=== PATIENT | female | born 1965 | race Caucasian/White ===

== ENCOUNTER → 2016-11-13 | Outpatient (CLI) | payer OTHER ==
--- NOTE | 2016-11-13 11:44 | MM ---
Reason for exam: additional evaluation requested from abnormal screening. Last mammogram was performed less than 1 month ago. History: Family history of breast cancer in aunt at age 50 and breast cancer in grandmother at age 80. Took hormonal contraceptives for 10 years. Physical Findings: Nurse did not find any significant physical abnormalities on exam. MG 3D Work Up W/Cad RT LM and spot compression CC view(s) were taken of the right breast. Prior study comparison: November 07, 2016, bilateral MG screening mammo w CAD. November 06, 2015, bilateral MG screening mammo w CAD. October 26, 2014, bilateral MG screening mammo w CAD. The breast tissue is heterogeneously dense. This may lower the sensitivity of mammography. The questioned central posterior asymmetry on the CC view does not show any persisting abnormality on tomosynthesis. A precautionary 6 month follow up is recommended. These results were verbally communicated with the patient and result sheet given to the patient on 11/13/16. ASSESSMENT: Probably benign, BI-RAD 3 RECOMMENDATION: Follow-up diagnostic mammogram of the right breast in 6 months.
== END | disposition home or self-care (01) ==
LOC: RADMAMWWP 10:08
PROVIDERS: ATTEND Obstetrics & Gynecology
DX: R92.8 Other abnormal and inconclusive findings on diagnostic imaging of breast (principal)
CPT/HCPCS: 77051; G0206; G0279

== ENCOUNTER → 2017-05-21 | Outpatient (CLI) | payer OTHER ==
--- NOTE | 2017-05-22 06:39 | MM ---
Reason for exam: follow-up at short interval from prior study. Last mammogram was performed 6 months ago. History: Family history of breast cancer in aunt at age 50 and breast cancer in grandmother at age 80. Took hormonal contraceptives for 10 years beginning at age 18. Physical Findings: Nurse did not find any significant physical abnormalities on exam. MG 3D Diag Mammo W/Cad RT CC and MLO view(s) were taken of the right breast. Prior study comparison: November 13, 2016, right breast MG 3d work up w/cad RT. November 07, 2016, bilateral MG screening mammo w CAD. The breast tissue is heterogeneously dense. This may lower the sensitivity of mammography. Asymmetric breast tissue in the right upper outer quadrant, stable. There is no discrete abnormality. These results were verbally communicated with the patient and result sheet given to the patient on 05/21/17. ASSESSMENT: Negative, BI-RAD 1 RECOMMENDATION: Return to routine screening mammogram schedule for both breasts. Back on schedule.
== END | disposition home or self-care (01) ==
LOC: RADMAMWWP 14:53
PROVIDERS: ATTEND Obstetrics & Gynecology
DX: R92.8 Other abnormal and inconclusive findings on diagnostic imaging of breast (principal)
CPT/HCPCS: G0206; G0279

== ENCOUNTER → 2018-10-27 | Outpatient (CLI) | payer OTHER ==
[2018-10-27 08:16] VITALS: BP 122/76; PULSE 65; TEMP 97.8; BMI 21.1
--- NOTE | 2018-10-27 08:55 | P.HPOB ---
History of Present Illness H&P Date: 10/27/18 Chief Complaint: The patient is here for her routine gynecologic exam and mammogram. This is a 53-year-old G2 PII with an LMP of May 2017. The patient is without gynecologic complaints. She denies any significant hot flashes. She denies any postmenopausal bleeding. Review of Systems Her weight has been stable. She denies respiratory or cardiac problems. G.I.: occasional constipation. Past Medical History Past Medical History: Thyroid Disorder (Hypothyroid) Additional Past Medical History / Comment(s): PAST DRUPAL PHP DEVELOPER HISTORY: She has no history of STDs. History of Any Multi-Drug Resistant Organisms: None Reported Past Surgical History: No Surgical Hx Reported Past Psychological History: Anxiety Smoking Status: Former smoker (Quit at age 30) Past Alcohol Use History: Occasional (2 per week) Past Drug Use History: None Reported Additional History: The patient is and is not seeing anybody at this time. She is currently unemployed. - Past Family History Father Family Medical History: Cancer (Esophageal cancer) Additional Family Medical History / Comment(s): Paternal aunt had breast cancer. A grandfather had brain cancer. Mother Family Medical History: No Reported History Additional Family Medical History / Comment(s): A maternal aunt had breast cancer. Medications and Allergies Home Medications Medication Instructions Recorded Confirmed Type Citalopram Hydrobromide [CeleXA] 40 mg PO DAILY 10/27/18 10/27/18 History Levothyroxine Sodium [Synthroid] 75 mcg PO DAILY 10/27/18 10/27/18 History Multivitamin [Multivitamins Adult PO DAILY 10/27/18 History Gummies] Allergies Allergy/AdvReac Type Severity Reaction Status Date / Time No Known Allergies Allergy Unverified 10/27/18 08:10 Exam Vital Signs Temp Pulse BP 10/27/18 08:13 97.8 F 65 122/76 Intake and Output 10/26/18 10/27/18 10/27/18 22:59 06:59 14:59 Other: Weight 57.606 kg Height 5'5" weight 127 pounds, BMI 21.1. This is a well-developed well-nourished white female who is alert and oriented times 3 in no acute distress. HEENT: Within normal limits. NECK: Supple without mass or thyromegaly. CHEST AND LUNGS: Clear to auscultation. HEART: Regular rate and rhythm. BREASTS: Are without mass or discharge. AXILLARY EXAM: Negative for adenopathy. BACK: Negative for CVA tenderness. ABDOMEN: Soft, nontender, without palpable masses. PELVIC EXAM: Normal external genitalia with mild atrophy. Cervix and vagina appear normal with mild to moderate atrophy. Cervix is somewhat stenotic secondary to atrophy. There is no unusual discharge. There is no evidence of prolapse. The uterus is midposition, nongravid size and nontender. There are no palpable adnexal masses or tenderness. RECTAL EXAM: rectovaginal exam is negative for mass or tenderness and is negative for occult blood. EXTREMITIES: Nontender. IMPRESSION: 1. 53-year-old menopausal female with normal gynecologic exam. 2. Family history of esophageal cancer in her father. PLAN: 1. Pap smear was performed. 2. Self breast awareness was discussed with the patient. 3. Screening mammogram will be done today. 4. Osteoporosis prevention was discussed. I have stressed the importance of adequate calcium, vitamin D and regular exercise. Recommended amounts of calcium and vitamin D were also discussed. 5. I have recommended screening colonoscopy with upper endoscopy because of her age and because of her family history of esophageal cancer. She states she is scheduled for a colonoscopy in the near future and will talk to the doctor about doing an upper endoscopy. She has asked for a letter with my recommendation for upper endoscopy and this was given to the patient. 6. She will return in one year.
--- NOTE | 2018-10-27 11:56 | MM ---
Reason for exam: screening (asymptomatic). Last mammogram was performed 1 year and 5 months ago. History: Patient is postmenopausal. Family history of breast cancer in aunt at age 50 and breast cancer in grandmother at age 80. Took hormonal contraceptives for 10 years beginning at age 18. Physical Findings: A clinical breast exam by your physician is recommended on an annual basis and results should be correlated with mammographic findings. MG 3D Screening Mammo W/Cad Bilateral CC and MLO view(s) were taken. Prior study comparison: May 21, 2017, right breast MG 3d diag mammo w/cad RT. November 13, 2016, right breast MG 3d work up w/cad RT. The breast tissue is extremely dense which could obscure a lesion on mammography. There is no discrete abnormality. ASSESSMENT: Negative, BI-RAD 1 RECOMMENDATION: Routine screening mammogram of both breasts in 1 year.
== END ==
LOC: WWCWWP 07:48
PROVIDERS: ATTEND Obstetrics & Gynecology
DX: Z12.31 Encounter for screening mammogram for malignant neoplasm of breast (principal)
CPT/HCPCS: 77063; 77067

== ENCOUNTER → 2019-10-29 | Outpatient (CLI) | payer OTHER ==
--- NOTE | 2019-11-04 09:55 | MM ---
Reason for exam: screening (asymptomatic). Last mammogram was performed 1 year ago. History: Patient is postmenopausal. Family history of breast cancer in aunt at age 50 and breast cancer in grandmother at age 80. Took hormonal contraceptives for 10 years beginning at age 18. Physical Findings: A clinical breast exam by your physician is recommended on an annual basis and results should be correlated with mammographic findings. MG 3D Screening Mammo W/Cad Bilateral CC and MLO view(s) were taken. Prior study comparison: October 27, 2018, bilateral MG 3d screening mammo w/cad. May 21, 2017, right breast MG 3d diag mammo w/cad RT. The breast tissue is heterogeneously dense. This may lower the sensitivity of mammography. No significant changes when compared with prior studies. ASSESSMENT: Negative, BI-RAD 1 RECOMMENDATION: Routine screening mammogram of both breasts in 1 year.
== END | disposition home or self-care (01) ==
LOC: RADMAMWWP 11:13
PROVIDERS: ATTEND Internal Medicine
DX: Z12.31 Encounter for screening mammogram for malignant neoplasm of breast (principal)
CPT/HCPCS: 77063; 77067

== ENCOUNTER → 2021-05-28 | Outpatient (CLI) | payer OTHER ==
--- NOTE | 2021-05-29 11:12 | MM ---
Reason for exam: screening (asymptomatic). Last mammogram was performed 1 year and 7 months ago. History: Patient is postmenopausal. Family history of breast cancer in aunt at age 50 and breast cancer in grandmother at age 80. Took hormonal contraceptives for 10 years beginning at age 18. Physical Findings: A clinical breast exam by your physician is recommended on an annual basis and results should be correlated with mammographic findings. MG 3D Screening Mammo W/Cad Bilateral CC and MLO view(s) were taken. Prior study comparison: October 29, 2019, bilateral MG 3d screening mammo w/cad. October 27, 2018, bilateral MG 3d screening mammo w/cad. The breast tissue is heterogeneously dense. This may lower the sensitivity of mammography. There is no discrete abnormality. No significant changes when compared with prior studies. ASSESSMENT: Negative, BI-RAD 1 RECOMMENDATION: Routine screening mammogram of both breasts in 1 year.
== END | disposition home or self-care (01) ==
LOC: RADMAMWWP 15:52
PROVIDERS: ATTEND Internal Medicine
DX: Z12.31 Encounter for screening mammogram for malignant neoplasm of breast (principal); Z78.0 Asymptomatic menopausal state; Z80.3 Family history of malignant neoplasm of breast; Z79.3 Long term (current) use of hormonal contraceptives
CPT/HCPCS: 77063; 77067

== ENCOUNTER → 2022-09-02 | Outpatient (CLI) | payer OTHER ==
[2022-09-02 15:32] VITALS: BP 112/76; PULSE 72; RESP 18; TEMP 98.3
--- NOTE | 2022-09-02 17:01 | P.HPOB ---
History of Present Illness H&P Date: 09/02/22 Chief Complaint: The patient is here for her routine gynecologic exam and ma mmogram. This is a 57-year-old with an LMP of 2017. The patient is without gynecologic complaints and denies any postmenopausal bleeding. Review of Systems The patient's weight has been stable over the last year. She denies respiratory, cardiac, or G.I. problems. Past Medical History Past Medical History: Thyroid Disorder Additional Past Medical History / Comment(s): Hypothyroidism. Osteoporosis. 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 History of Any Multi-Drug Resistant Organisms: None Reported Past Surgical History: No Surgical Hx Reported Past Psychological History: Anxiety Smoking Status: Former smoker Past Alcohol Use History: Occasional (1 per month) Additional Past Alcohol Use History / Comment(s): Quit smoking at age 30. Past Drug Use History: None Reported Additional History: The patient is and is not sexually active. - Past Family History Father Family Medical History: Cancer Additional Family Medical History / Comment(s): Paternal aunt had breast cancer. A grandfather had brain cancer. Mother Family Medical History: No Reported History Additional Family Medical History / Comment(s): A maternal aunt had breast cance r. Medications and Allergies Home Medications Medication Instructions Recorded Confirmed Type Citalopram Hydrobromide [CeleXA] 40 mg PO DAILY 10/27/18 09/02/22 History Levothyroxine Sodium [Synthroid] 75 mcg PO DAILY 10/27/18 09/02/22 History Multivitamin [Multivitamins Adult 1 tab PO DAILY 10/27/18 09/02/22 History Gummies] Allergies Allergy/AdvReac Type Severity Reaction Status Date / Time No Known Allergies Allergy Unverified 09/02/22 15:28 Exam Vital Signs Temp Pulse Resp BP Pulse Ox 09/02/22 15:29 98.3 F 72 18 112/76 97 Intake and Output 09/02/22 09/02/22 09/02/22 06:59 14:59 22:59 Other: Weight 57.606 kg Height 5 feet 6 inches, weight 127 pounds, BMI 20.5. This is a well-developed well-nourished white female who is alert and oriented times 3 in no acute distress. HEENT: Within normal limits. NECK: Supple without mass or thyromegaly. CHEST AND LUNGS: Clear to auscultation. HEART: Regular rate and rhythm. BREASTS: Are without mass or discharge. AXILLARY EXAM: Negative for adenopathy. BACK: Negative for CVA tenderness. ABDOMEN: Soft, nontender, without palpable masses. PELVIC EXAM: Normal external genitalia with mild to moderate atrophy. Cervix and vagina appear normal with mild to moderate atrophy. There is no unusual discharge. There is no evidence of prolapse. The uterus is midposition, nongravid size and nontender. There are no palpable adnexal masses or tenderness. RECTAL EXAM: Rectovaginal exam is negative for mass or tenderness and is negative for occult blood. EXTREMITIES: Nontender. IMPRESSION: 1. 57-year-old menopausal female with normal gynecologic exam. 2. History of osteoporosis which has been managed and monitored by her conservation coordinator. PLAN: 1. Pap smear cotest was performed. 2. Self breast awareness was discussed with the patient. We have also discussed symptoms associated with inflammatory breast cancer. 3. Screening mammogram was done today. 4. Osteoporosis management was discussed. I have stressed the importance of adequate calcium, vitamin D and regular exercise. Recommended amounts of calcium and vitamin D were also discussed. The patient states she has tried different medications through her conservation coordinator including Fosamax and Actonel. Both caused significant constipation and GI problems and were therefore discontinued soon after starting them. We have discussed other medications that are available including an IV bisphosphonate as well as Prolia. She has seen a bone specialist, Dr. Henriquez, who will also offered her injection medications for osteoporosis. She states she will try to get a copy of her most recent bone density testing from her conservation coordinator and this would allow me to review it. She will continue to see her conservation coordinator for osteoporosis management. She will let me know if she would like me to further participate with her management for this. 5. She was advised to return in one year for her annual well woman exam.
--- NOTE | 2022-09-03 17:20 | MM ---
Reason for Exam: Screening (asymptomatic). Last mammogram was performed 1 year(s) and 3 month(s) ago. Patient History: Menarche at age 12. First Full-Term at age 17. Postmenopausal. Hormonal Contraceptives for 10 years from age 18 until age 28. Maternal grandmother had breast cancer, age 80. Maternal aunt had breast cancer, age 50. Paternal aunt had breast cancer, age 50. Risk Values: Fely 5 year model risk: 0.9%. NCI Lifetime model risk: 5.0%. Prior Study Comparison: 10/27/2018 Bilateral Screening Mammogram, [facility]. 10/29/2019 Bilateral Screening Mammogram, [facility]. 05/28/2021 Bilateral Screening Mammogram, [facility]. Tissue Density: The breast tissue is heterogeneously dense. This may lower the sensitivity of mammography. Findings: Analyzed By CAD. Pattern appears symmetrical and stable. No significant interval changes are evident. No suspicious groups of microcalcifications, spiculated or lobular masses, architectural distortion or other secondary signs of malignancy are mammographically apparent. Overall Assessment: Benign, BI-RAD 2 Management: Screening Mammogram of both breasts in 1 year. A negative mammogram report should not preclude additional follow up of suspicious palpable abnormalities. Patient should continue monthly self breast exam. A clinical breast exam by your physician is recommended on an annual basis and results should be correlated with mammographic findings. Electronically signed and approved by: Chris Olivera D.O. Radiologis
== END ==
LOC: WWCWWP 15:23
PROVIDERS: ATTEND Obstetrics & Gynecology
DX: Z01.419 Encounter for gynecological examination (general) (routine) without abnormal findings (principal); Z12.31 Encounter for screening mammogram for malignant neoplasm of breast; Z87.891 Personal history of nicotine dependence; Z78.0 Asymptomatic menopausal state; Z87.310 Personal history of (healed) osteoporosis fracture
CPT/HCPCS: 77063; 77067